=== PATIENT | female | born 1930 | race Hispanic/Latino ===

== ENCOUNTER 2017-11-10 11:09 | Observation (INO) | payer MEDICARE ==
[~2017-11-10] VITALS: Ht 152.4 cm; Wt 65.7 kg
[2017-11-10] MEDS ORDERED: ASPIRIN 325 MG TABLET ONE (11:23)
[2017-11-10 11:30] LABS: BASOPHILS % (AUTO) 0.2 % (0.0-5.0); HEMATOCRIT 39.2 % (36-48); LYMPHOCYTES % (AUTO) 31.1 % (21.0-51.0); MEAN CORPUSCULAR HEMOGLOBIN 34.1 pg (27.0-33.0); MEAN CORPUSCULAR HGB CONC 35.9 g/dL (32.0-36.0); MONOCYTES % (AUTO) 6.5 % (3.0-13.0); NEUTROPHILS % (AUTO) 56.2 % (40.0-77.0); PLATELET COUNT (AUTO) 257 K/uL (130-400); RED BLOOD CELL COUNT(AUTO) 4.12 MIL/uL (4.00-5.50); RED CELL DISTRIBUTION WIDTH 13.1 % (11.0-15.5); WHITE BLOOD COUNT (AUTO) 6.4 K/uL (4.8-10.8)
[2017-11-10 11:36] LABS: CREATININE 0.8 mg/dL (0.5-1.5); POTASSIUM 3.7 mmol/L (3.5-5.1)
[2017-11-10] MEDS ORDERED: NITROGLYCERIN 1GM/1 INCH PACKET TD ONE (11:43)
[2017-11-10 11:44] LABS: INR 0.95 (0.85-1.15); PARTIAL THROMBOPLASTIN TIME 25.8 SEC (26.3-35.5)
[2017-11-10 11:53] LABS: ALBUMIN 4.2 g/dL (3.5-5.0); BILIRUBIN,TOTAL 0.7 mg/dL (0.2-1.0); CREATINE KINASE MB 0.5 ng/mL (0.5-3.6); TOTAL PROTEIN, SERUM 7.7 g/dL (6.0-8.3)
[2017-11-10] MEDS ORDERED: FENTANYL CITRATE PF 50 MCG/1 ML 2ML VIAL ONE (12:03)
[2017-11-10] MEDS ORDERED: KETOROLAC TROMETHAMINE 15MG/ML ONE (12:28)
[2017-11-10] MEDS ORDERED: ENOXAPARIN SODIUM 100 MG/1 ML SQ ONE (16:22)
[2017-11-10] MEDS ORDERED: IOPAMIDOL-370 100 ML VIAL IV ONE (16:23)
[2017-11-10] MEDS ORDERED: MORPHINE SULFATE 4 MG/1ML SYG ONE (16:23)
[2017-11-10] MEDS ORDERED: ACETAMINOPHEN 325 MG TAB ONE (16:28)
[2017-11-10 17:38] VITALS: BP 131/71
[2017-11-10] MEDS ORDERED: DICL75TA5 PO (18:10)
[2017-11-10] MEDS ORDERED: MIRT15TA6 PO (18:10)
[2017-11-10] MEDS ORDERED: LEVO50TA11 PO (18:10)
[2017-11-10] MEDS ORDERED: HYDR25TA PO (18:10)
[2017-11-10] MEDS ORDERED: OMEP40CA37 PO (18:10)
[2017-11-10] MEDS ORDERED: GABA-531 PO (18:10)
[2017-11-10] MEDS ORDERED: TRAM50TA2 PO (18:10)
[2017-11-10] MEDS ORDERED: METF500T6 PO (18:10)
[2017-11-10] MEDS ORDERED: NITROGLYCERIN 0.4 MG SL TAB SL PRN (18:15)
[2017-11-10] MEDS ORDERED: ONDANSETRON HCL MDV 20ML 2 MG/ML VIAL IVP PRN (18:15)
[2017-11-10] MEDS ORDERED: ACETAMINOPHEN 325 MG TAB PO PRN (18:15)
[2017-11-10] MEDS ORDERED: MORPHINE SULFATE 4 MG/1ML SYG IVP PRN ×2 (18:15)
[2017-11-10 18:22] LABS: CREATINE KINASE MB < 0.5 ng/mL (0.5-3.6); CREATINE KINASE, TOTAL 42 U/L (21-232); MYOGLOBIN 85 ng/mL (10-92); TROPONIN I < 0.04 ng/mL (0.00-0.06)
[2017-11-10 19:28] VITALS: BP 142/71
[2017-11-10] MEDS: METOPROLOL TARTRATE 25 MG TAB PO SCH (20:51)
[2017-11-10 23:23] VITALS: BP 157/72
[2017-11-11 00:50] LABS: CREATINE KINASE MB 0.5 ng/mL (0.5-3.6); CREATINE KINASE, TOTAL 51 U/L (21-232); MYOGLOBIN 75 ng/mL (10-92); TROPONIN I < 0.04 ng/mL (0.00-0.06)
[2017-11-11 03:40] VITALS: BP 148/77
[2017-11-11] MEDS ORDERED: ENOXAPARIN SODIUM 60 MG/0.6 ML SQ SCH (05:00)
[2017-11-11 05:21] LABS: HEMOGLOBIN A1C 7.3 % (4.0-6.0)
[2017-11-11 05:40] LABS: THYROID STIMULATING HORMONE 4.45 uIU/mL (0.36-3.74)
[2017-11-11] MEDS: ACETAMINOPHEN 325 MG TAB PO PRN ×3 (06:05→22:01)
[2017-11-11 07:00] VITALS: BP 136/68
[2017-11-11] MEDS: ASPIRIN 325 MG TABLET PO SCH (09:00)
[2017-11-11] MEDS: METOPROLOL TARTRATE 25 MG TAB PO SCH ×2 (09:00→20:35)
[2017-11-11] MEDS ORDERED: LIDOCAINE HCL-MPF 1% 2ML VIAL IVP PRN (09:45)
[2017-11-11] MEDS ORDERED: POTASSIUM CHLORIDE 10% ELIXIR 20 MEQ/15 ML UDCUP PO PRN (09:45)
[2017-11-11] MEDS ORDERED: POTASSIUM CHLORIDE 20MEQ/100ML 100 ML IV PRN (09:45)
[2017-11-11] MEDS ORDERED: TRAMADOL HCL 50 MG TABLET PO PRN (09:45)
[2017-11-11 11:00] VITALS: BP 133/81
[2017-11-11] MEDS: KETOROLAC TROMETHAMINE 15MG/ML IV SCH ×3 (11:28→20:56)
[2017-11-11] MEDS ORDERED: REGADENOSON 0.4 MG/5 ML PF SYG IVP SCH (11:30)
[2017-11-11 16:00] VITALS: BP 146/77
[2017-11-11] MEDS: POTASSIUM CHLORIDE 20 MEQ ERTAB PO PRN ×2 (17:30→18:25)
[2017-11-11 19:27] VITALS: BP 135/66
[2017-11-11] MEDS: GABAPENTIN 300 MG CAPSULE PO SCH (20:36)
[2017-11-11] MEDS: **HM** DICLOFENAC 75MG PO SCH (20:39)
[2017-11-11] MEDS ORDERED: MIRTAZAPINE 15 MG TABLET PO SCH (21:00)
[2017-11-11 23:27] VITALS: BP 147/74
[2017-11-12] MEDS: KETOROLAC TROMETHAMINE 15MG/ML IV SCH (02:31)
[2017-11-12 03:52] VITALS: BP 132/51
[2017-11-12] MEDS ORDERED: LEVOTHYROXINE 50 MCG TABLET PO SCH (07:30)
[2017-11-12 07:43] VITALS: BP 147/77
[2017-11-12] MEDS: **HM** DICLOFENAC 75MG PO SCH (08:37)
[2017-11-12] MEDS: GABAPENTIN 300 MG CAPSULE PO SCH (08:37)
[2017-11-12] MEDS: ASPIRIN 325 MG TABLET PO SCH (08:37)
[2017-11-12] MEDS: METOPROLOL TARTRATE 25 MG TAB PO SCH (08:37)
[2017-11-12] MEDS ORDERED: HYDROCHLOROTHIAZIDE 25 MG TABLET PO SCH (09:00)
[2017-11-12] MEDS ORDERED: ENOXAPARIN SODIUM 30 MG/0.3 ML SQ SCH (09:00)
== END 2017-11-12 09:15 | disposition home or self-care (01) ==
LOC: EDH 11:09 → EDHIP 14:00 → 2AH 17:33
PROVIDERS: ADMIT Internal Medicine; ATTEND Internal Medicine
DX: R07.89 Other chest pain (principal); E11.9 Type 2 diabetes mellitus without complications; E78.5 Hyperlipidemia, unspecified; E03.9 Hypothyroidism, unspecified; I10 Essential (primary) hypertension; I48.91 Unspecified atrial fibrillation; Z99.3 Dependence on wheelchair; Z96.642 Presence of left artificial hip joint
CPT/HCPCS: 36415 ×2; 71045; 71275; 78452; 80053; 80061; 82550 ×3; 82553 ×3; 82948; 83036; 83874 ×3; 83880; 84443; 84484 ×3; 85025; 85378; 85610; 85730; 93005 ×2; 93017; 96372; 96374; 99285; A9500 ×2; G0378 ×43; J1650 ×3; J1885 ×2; J2270; J2785; J3010; Q9967